=== PATIENT | male | born 1990 | race African-American/Black ===

== ENCOUNTER 2016-05-03 08:50 | Inpatient (IN) | payer OTHER ==
[~2016-05-03] VITALS: Ht 180.3 cm; Wt 81.6 kg
[~2016-05-03 08:50] MED LIST: ACETAMINOPHEN-1 EAC1 ORAL; ALBUTEROL SULF8.5 GM INH; AMOXICILLIN500 MG ORAL; BACTRIM DS TAB1 EAC1 ORAL; BACTRIM-DS1 EA ORAL; BENADRYL25 M1 PO; CEPHALEXIN500 MG ORAL; CEPHALEXIN500 MG PO; COLACE100 MG ORAL; COLACE100 MG PO; FLAGYL500 MG ORAL; FLEET ENEMA133 ML RECTAL; GABAPENTIN300 MG PO; KEFLEX500 MG ORAL; LACTULOSE20 GM/301 ORAL; LIORESAL10 MG PO; LIORESAL20 MG PO; MACROBID 100 M100 MG ORAL; MACROBID100 MG ORAL; MILK OF MA400 MG/51 ORAL; MOTRIN100 MG/51 PO; NITROFURANTOIN100 M2 ORAL; NORCO 10-325 T1 EACH ORAL; NORCO 5-325 TA1 EACH ORAL; NORCO 5-325 TA1 EACH PO; NORCO 5/3251 TAB ORAL; NORCO 7.5/3251 EA ORAL; ONDANSETRON ODT4 MG ORAL; ONDANSETRON ODT8 MG PO; PERCOCET 5-3251 EACH ORAL; PROMETHAZINE-C118 M1 ORAL; RANITIDINE HCL150 MG ORAL; ROBAXIN-750750 MG PO; ROBAXIN500 MG PO; SOMA350 MG PO; TIZANIDINE HCL4 MG PO; TRAMADOL HCL50 MG ORAL; VALIUM5 MG ORAL; ZOFRAN ODT4 MG ORAL; ZOFRAN4 MG ORAL; ZOFRAN4 MG/5 ML ORAL; [UNRECOGNIZED DRUG - OTHER]
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
[2016-05-03 10:10] VITALS: BP 111/70
[2016-05-03] MEDS ORDERED: Vancomycin 1.5gm/D5W 300ml 325 ML IVPB ONE (10:30)
[2016-05-03] MEDS ORDERED: Acetaminophen 650 MG SUPP RECTAL ONE (10:30)
--- NOTE | 2016-05-03 10:43 | Diagnostic Imaging Report ---
Indication: Chest Pain Comparison: 08/15/15 A single view chest radiograph was obtained. Findings: The exam is limited by rotation but no obvious infiltrate identified. There is borderline cardiomegaly present. Bones are unremarkable. Impression: No acute disease
[2016-05-03 11:09] LABS: BASOPHILS % (AUTO) 0.4 % (0.0-2.0); LYMPHOCYTES % (AUTO) 7.6 % (20.0-45.0); MEAN CORPUSCULAR HEMOGLOBIN 29.8 PG (27.0-31.0); MEAN CORPUSCULAR HGB CONC 32.6 G/DL (32.0-36.0); MEAN CORPUSCULAR VOLUME 92 FL (80-99); MEAN PLATELET VOLUME 8.6 FL (6.5-10.1); NEUTROPHILS % (AUTO) 79.1 % (45.0-75.0); PLATELET COUNT 199 K/UL (150-450); RED BLOOD COUNT 5.28 M/UL (4.70-6.10); RED CELL DISTRIBUTION WIDTH 11.7 % (11.6-14.8); WHITE BLOOD COUNT 14.3 K/UL (4.8-10.8)
[2016-05-03 11:21] LABS: ALANINE AMINOTRANSFERASE 13 U/L (3-41); ALBUMIN/GLOBULIN RATIO 0.8 (1.0-2.7); ANION GAP 22 (5-15); ASPARTATE AMINO TRANSFERASE 23 U/L (5-40); CALCIUM 9.7 mg/dL (8.6-10.2); CARBON DIOXIDE 23 mEQ/L (20-30); CHLORIDE 92 mEQ/L (98-107); CREATININE 0.9 mg/dL (0.7-1.2); GLOMERULAR FILTRATION RATE > 60 mL/min (>60); HEMOLYSIS 11; LIPASE 59 U/L (< 60); POTASSIUM 3.8 mEQ/L (3.4-4.9); SODIUM 137 mEQ/L (135-145); TOTAL PROTEIN 8.7 g/dL (6.6-8.7); TROPONIN I < 0.30 ng/mL (<=0.30)
[2016-05-03 11:30] LABS: CKMB 1.9 ng/mL (< 6.7)
[2016-05-03] MEDS ORDERED: DuoNeb 0.5-3(2.5)mg/3ml neb HHN PRN (11:30)
[2016-05-03] MEDS ORDERED: Miralax 17gm pkt ORAL PRN (11:30)
[2016-05-03] MEDS ORDERED: Nitroglycerin Subl 0.4mg tab (Bottle Of 25) SL PRN (11:30)
[2016-05-03 11:49] LABS: APPEARANCE,URINE CLEAR; KETONES,URINE 1+ (NEGATIVE); LEUKOCYTE ESTERASE ,URINE 2+ (NEGATIVE); NITRITE,URINE NEGATIVE (NEGATIVE); PH,URINE 6 (4.5-8.0); PROTEIN,URINE 2+ (NEGATIVE); UROBILINOGEN,URINE NORMAL MG/DL (0.0-1.0)
[2016-05-03 12:00] LABS: BACTERIA,URINE OCCASIONAL /HPF; SQUAMOUS EPITHELIAL CELL,UR OCCASIONAL /LPF (NONE/OCC)
[2016-05-03 12:06] VITALS: BP 109/66
[2016-05-03] MEDS ORDERED: Zosyn 4.5gm inj ONE (12:45)
[2016-05-03 13:05] VITALS: BP 111/76
[2016-05-03 13:30] VITALS: BP 120/62
[2016-05-03] MEDS ORDERED: Piperacillin/Tazobactam 4.5 GM in NS 110 ML IV SCH (14:00)
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
[2016-05-03] MEDS ORDERED: Heparin 2000 units/Ns 1000ml INJ ONE (15:30)
[2016-05-03] MEDS ORDERED: Lidocaine 1% Plain 30 ml INJ ONE (15:30)
[2016-05-03] MEDS ORDERED: Sodium Bicarbonate 8.4% 50ml Inj IV ONE (15:30)
[2016-05-03 16:00] VITALS: BP 97/41
--- NOTE | 2016-05-03 16:15 | Diagnostic Imaging Report ---
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 The right upper extremity was prepped with alcohol. All elements of maximal sterile barrier technique were followed including usage of a cap, mask, sterile gown, sterile gloves, hand hygiene and a large sterile sheet. Sonographic evaluation of the upper extremity was performed demonstrating a patent and compressible basilic vein. Access was obtained under real-time ultrasound guidance and digital image was saved and archived. An .018 wire was introduced. Needle exchanged for a 5 Estonian peel-away sheath. Measurements were obtained. A 5 [place]ian dual-lumen Power PICC line catheter was cut to 40 cm and introduced over the wire. Peel-away sheath and wire were removed.Catheter was secured to the skin using 2-0 Prolene suture. Both ports aspirate and flush easily. Fluoroscopic Images show distal tip in the superior vena cava. Total fluoroscopic time 1.3 minutes Impression: Successful placement of an upper extremity PICC line catheter
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
--- NOTE | 2016-05-03 16:43 | Diagnostic Imaging Report ---
Indication: Abdominal pain Technique: Continuous helical transaxial imaging of the abdomen and pelvis was obtained from the lung bases to the pubic symphysis during intravenous contrast administration. Coronal 2-D reformats were also obtained. Study obtained in a Siemens sensation [address] Total Dose length Product (DLP): [address] Dose Index Volume (CTDIvol): 20 mGy Comparison: 07/06/15 Findings: There is a stone in the upper pole calyx of the left kidney measuring approximately 1.6 cm, unchanged from the previous occasion. Other smaller nonobstructive stones demonstrated in the right kidney. There is mild left hydronephrosis secondary to a proximal left ureteral stone measuring 7 mm. This may be ureteral stone was not seen on the previous occasion. There is moderate fecal impaction without distention of the rectum and sigmoid colon due to stool. Motion artifacts are present limiting evaluation. No obvious abnormalities of the liver, gallbladder is, spleen or pancreas identified. There is no ascites. Coffey catheter is present. Impression: 7 mm left mid ureteral stone with mild hydronephrosis. Nonobstructive 1.6 cm stone in the left kidney upper pole calyx. Small nonobstructive stones in the right kidney. Fecal impaction Coffey catheter Limitation due to the motion The CT scanner at [facility] is accredited by the [employer] and the scans are performed using protocols designed to limit radiation exposure to as low as reasonably achievable to attain images of sufficient resolution adequate for diagnostic evaluation.
[2016-05-03] MEDS: Methocarbamol 750mg tab ORAL SCH ×2 (16:49→21:30)
[2016-05-03] MEDS: Morphine Sulfate 2mg/ml Inj IVP PRN ×2 (16:50→21:30)
[2016-05-03] MEDS: Cefepime HCl 2 GM in D5W 110 ML IV SCH (16:53)
[2016-05-03] MEDS: Vancomycin 1 GM in D5W 275 ML IVPB SCH (17:11)
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
[2016-05-03 20:46] VITALS: BP 105/59
[2016-05-03] MEDS: Heparin 5000 units/ml inj SUBQ SCH (21:32)
[2016-05-04] VITALS (8 sets, daily range): BP systolic 3–142; BP diastolic 49–71
[2016-05-04] MEDS: Morphine Sulfate 2mg/ml Inj IVP PRN ×3 (01:36→12:25)
[2016-05-04] MEDS: Vancomycin 1 GM in D5W 275 ML IVPB SCH ×3 (01:37→17:37)
[2016-05-04 04:04] LABS: APPEARANCE,URINE SLIGHTLY CLOUDY; KETONES,URINE 1+ (NEGATIVE); LEUKOCYTE ESTERASE ,URINE 2+ (NEGATIVE); NITRITE,URINE NEGATIVE (NEGATIVE); PH,URINE 6 (4.5-8.0); PROTEIN,URINE 3+ (NEGATIVE); UROBILINOGEN,URINE NORMAL MG/DL (0.0-1.0)
[2016-05-04 04:06] LABS: BASOPHILS % (AUTO) 0.4 % (0.0-2.0); LYMPHOCYTES % (AUTO) 13.6 % (20.0-45.0); MEAN CORPUSCULAR HEMOGLOBIN 30.2 PG (27.0-31.0); MEAN CORPUSCULAR HGB CONC 32.9 G/DL (32.0-36.0); MEAN CORPUSCULAR VOLUME 92 FL (80-99); MEAN PLATELET VOLUME 9.3 FL (6.5-10.1); MONOCYTES % (AUTO) 14.2 % (1.0-10.0); NEUTROPHILS % (AUTO) 71.8 % (45.0-75.0); PLATELET COUNT 170 K/UL (150-450); RED BLOOD COUNT 4.32 M/UL (4.70-6.10); RED CELL DISTRIBUTION WIDTH 12.1 % (11.6-14.8); WHITE BLOOD COUNT 14.2 K/UL (4.8-10.8)
[2016-05-04 04:19] LABS: ALANINE AMINOTRANSFERASE 13 U/L (3-41); ALBUMIN/GLOBULIN RATIO 0.9 (1.0-2.7); ANION GAP 16 (5-15); ASPARTATE AMINO TRANSFERASE 22 U/L (5-40); CARBON DIOXIDE 27 mEQ/L (20-30); CHLORIDE 90 mEQ/L (98-107); CREATININE 0.8 mg/dL (0.7-1.2); GLOMERULAR FILTRATION RATE > 60 mL/min (>60); HEMOLYSIS 3; POTASSIUM 4.3 mEQ/L (3.4-4.9); SODIUM 133 mEQ/L (135-145); TOTAL PROTEIN 7.5 g/dL (6.6-8.7)
[2016-05-04 04:27] LABS: BACTERIA,URINE FEW /HPF; RBC,URINE TNTC /HPF (0 - 0); WBC,URINE 20-30 /HPF (0 - 0)
[2016-05-04] MEDS: Cefepime HCl 2 GM in D5W 110 ML IV SCH ×2 (08:22→20:59)
[2016-05-04] MEDS: Methocarbamol 750mg tab ORAL SCH ×3 (08:23→17:34)
[2016-05-04] MEDS: Heparin 5000 units/ml inj SUBQ SCH ×2 (08:23→21:00)
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
[2016-05-04] MEDS ORDERED: Nitroglycerin Subl 0.4mg tab (Bottle Of 25) SL PRN (14:45)
--- NOTE | 2016-05-04 16:56 | History & Physical ---
History and Physical History & Physicial Dictated for Int Med-Dr Barcenas no. [id number] LOBO TOLLIVER May 04, 2016 16:56
[2016-05-04] MEDS ORDERED: DuoNeb 0.5-3(2.5)mg/3ml neb HHN PRN (17:00)
[2016-05-05] MEDS: Morphine Sulfate 2mg/ml Inj IVP PRN ×5 (00:07→18:30)
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
[2016-05-05] MEDS: Vancomycin 1 GM in D5W 275 ML IVPB SCH ×3 (02:29→17:08)
[2016-05-05 04:00] VITALS: BP 159/92
[2016-05-05 07:06] LABS: BASOPHILS % (AUTO) 0.6 % (0.0-2.0); EOSINOPHILS % (AUTO) 1.1 % (0.0-3.0); LYMPHOCYTES % (AUTO) 15.6 % (20.0-45.0); MEAN CORPUSCULAR HEMOGLOBIN 30.8 PG (27.0-31.0); MEAN CORPUSCULAR HGB CONC 33.4 G/DL (32.0-36.0); MEAN CORPUSCULAR VOLUME 92 FL (80-99); MEAN PLATELET VOLUME 8.6 FL (6.5-10.1); MONOCYTES % (AUTO) 15.5 % (1.0-10.0); NEUTROPHILS % (AUTO) 67.2 % (45.0-75.0); PLATELET COUNT 145 K/UL (150-450); RED BLOOD COUNT 3.95 M/UL (4.70-6.10); RED CELL DISTRIBUTION WIDTH 11.6 % (11.6-14.8); WHITE BLOOD COUNT 9.5 K/UL (4.8-10.8)
[2016-05-05 07:18] LABS: ALANINE AMINOTRANSFERASE 15 U/L (3-41); ALBUMIN/GLOBULIN RATIO 0.8 (1.0-2.7); ANION GAP 15 (5-15); ASPARTATE AMINO TRANSFERASE 20 U/L (5-40); CALCIUM 9.3 mg/dL (8.6-10.2); CARBON DIOXIDE 25 mEQ/L (20-30); CHLORIDE 97 mEQ/L (98-107); CREATININE 0.6 mg/dL (0.7-1.2); GLOMERULAR FILTRATION RATE > 60 mL/min (>60); HEMOLYSIS 1; MAGNESIUM 1.7 mg/dL (1.7-2.5); PHOSPHORUS 2.7 mg/dL (2.5-4.8); POTASSIUM 4.1 mEQ/L (3.4-4.9); SODIUM 137 mEQ/L (135-145); TOTAL PROTEIN 7.4 g/dL (6.6-8.7)
[2016-05-05 08:30] VITALS: BP 134/72
[2016-05-05] MEDS: Heparin 5000 units/ml inj SUBQ SCH ×2 (09:00→20:55)
[2016-05-05] MEDS: Methocarbamol 750mg tab ORAL SCH ×3 (09:22→17:06)
[2016-05-05] MEDS: Cefepime HCl 2 GM in D5W 110 ML IV SCH ×2 (09:24→20:54)
[2016-05-05] MEDS ORDERED: Miralax 17gm pkt ORAL PRN (11:30)
[2016-05-05 11:50] VITALS: BP 135/80
--- NOTE | 2016-05-05 13:03 | Internal Med Progress Note ---
Subjective Date of Service: May 05, 2016 Physician Name Lobo Tolliver Attending Physician Igor Barcenas MD Current Medications Medications (Trade) Dose Ordered Sig/Jahaira Route PRN Reason Start Time Stop Time Status Last Admin Dose Admin Acetaminophen (Tylenol) 650 mg Q4H PRN ORAL fever 05/04/16 15:30 06/03/16 15:29 05/04/16 15:47 Albuterol/ Ipratropium (DuoNeb 0.5-3(2.5)mg/3ml) 3 ml EVERY 4 HOURS PRN HHN Shortness of Breath 05/04/16 17:00 05/09/16 16:59 Cefepime HCl 2 gm/ Dextrose 110 ml @ 220 mls/hr Q12HR IV 05/04/16 21:00 05/10/16 20:59 05/05/16 09:24 Gabapentin (Neurontin) 400 mg Q8HR ORAL 05/04/16 22:00 06/03/16 21:59 Gabapentin (Neurontin) 600 mg Q8HR ORAL 05/04/16 22:00 06/03/16 21:59 Heparin Sodium (Porcine) (Heparin 5000 units/ml) 5,000 units EVERY 12 HOURS SUBQ 05/04/16 21:00 06/03/16 20:59 Methocarbamol (Robaxin) 750 mg TID ORAL 05/04/16 18:00 06/03/16 17:59 05/05/16 09:22 Morphine Sulfate (Morphine Sulfate) 4 mg Q4H PRN IVP Severe Pain (Pain Scale 7-10) 05/05/16 11:00 05/12/16 10:59 05/05/16 12:52 Nitroglycerin (Ntg) 0.4 mg Q5M PRN SL Prn Chest Pain 05/04/16 14:45 06/03/16 14:44 Ondansetron HCl (Zofran) 4 mg Q6H PRN IVP Nausea & Vomiting 05/04/16 17:30 06/03/16 17:29 05/05/16 12:52 Polyethylene Glycol (Miralax) 17 gm DAILYPRN PRN ORAL Constipation 05/05/16 11:30 06/04/16 11:29 Sodium Chloride 1,000 ml @ 100 mls/hr Q10H IV 05/04/16 16:00 06/03/16 15:59 05/05/16 06:39 Temazepam (Restoril) 15 mg HSPRN PRN ORAL Insomnia 05/05/16 11:30 05/12/16 11:29 Vancomycin HCl (Vanco rx to dose) 1 ea DAILY PRN MISC PER RX PROTOCOL 05/05/16 09:00 06/04/16 08:59 Vancomycin HCl/ Dextrose (Vancomycin/D5W) 275 ml @ 183.3 mls/ hr Q8HR@0200,1000,1800 IVPB 05/04/16 18:00 05/08/16 17:59 05/05/16 10:34 Allergies: Coded Allergies: IBUPROFEN (Verified Allergy, Mild, Hives, 09/16/12) LEVOFLOXACIN (Verified Allergy, Unknown, 12/15/10) NITROFURANTOIN (Unverified Allergy, Unknown, 05/03/16) ROS Limited/Unobtainable: No Constitutional: Reports: chills, fever HEENT: Reports: no symptoms Cardiovascular: Reports: no symptoms Respiratory: Reports: no symptoms Gastrointestinal/Abdominal: Reports: nausea, vomiting Genitourinary: Reports: no symptoms Neurologic/Psychiatric: Reports: no symptoms Subjective 25 YO M with paraplegia admitted with fever, now sepsis. Cover for Int [facility]-Dr Barcenas. Objective Last Vital Signs Date Time Temp Pulse Resp B/P Pulse Ox O2 Delivery O2 Flow Rate FiO2 05/05/16 11:50 98.2 76 20 135/80 95 Room Air 05/05/16 08:15 21 05/03/16 13:05 3.0 General Appearance: WD/WN, no apparent distress, alert EENT: PERRL/EOMI, normal ENT inspection Neck: non-tender, normal alignment, supple Cardiovascular: normal peripheral pulses, normal rate, regular rhythm, no gallop/murmur, no JVD Respiratory/Chest: chest wall non-tender, lungs clear, normal breath sounds, no respiratory distress, no accessory muscle use Abdomen: normal bowel sounds, non tender, soft, no organomegaly, no mass Extremities: other - paraplegia Neurologic: lens dotter II-XII grossly normal Skin: normal pigmentation, warm/dry Laboratory Tests Test 05/05/16 04:45 White Blood Count 9.5 K/UL (4.8-10.8) Red Blood Count 3.95 M/UL (4.70-6.10) L Hemoglobin 12.2 G/DL (14.2-18.0) L Hematocrit 36.4 % (42.0-52.0) L Mean Corpuscular Volume 92 FL (80-99) Mean Corpuscular Hemoglobin 30.8 PG (27.0-31.0) Mean Corpuscular Hemoglobin Concent 33.4 G/DL (32.0-36.0) Red Cell Distribution Width 11.6 % (11.6-14.8) Platelet Count 145 K/UL (150-450) L Mean Platelet Volume 8.6 FL (6.5-10.1) Neutrophils (%) (Auto) 67.2 % (45.0-75.0) Lymphocytes (%) (Auto) 15.6 % (20.0-45.0) L Monocytes (%) (Auto) 15.5 % (1.0-10.0) H Eosinophils (%) (Auto) 1.1 % (0.0-3.0) Basophils (%) (Auto) 0.6 % (0.0-2.0) Sodium Level 137 mEQ/L (135-145) Potassium Level 4.1 mEQ/L (3.4-4.9) Chloride Level 97 mEQ/L (98-107) L Carbon Dioxide Level 25 mEQ/L (20-30) Anion Gap 15 (5-15) Blood Urea Nitrogen 11 mg/dL (7-23) Creatinine 0.6 mg/dL (0.7-1.2) L Estimat Glomerular Filtration Rate > 60 mL/min (>60) Glucose Level 84 mg/dL (74-106) Calcium Level 9.3 mg/dL (8.6-10.2) Phosphorus Level 2.7 mg/dL (2.5-4.8) Magnesium Level 1.7 mg/dL (1.7-2.5) Total Bilirubin 0.7 mg/dL (0.0-1.2) Aspartate Amino Transf (AST/SGOT) 20 U/L (5-40) Alanine Aminotransferase (ALT/SGPT) 15 U/L (3-41) Alkaline Phosphatase 54 U/L (40-129) Total Protein 7.4 g/dL (6.6-8.7) Albumin 3.3 g/dL (3.5-5.2) L Globulin 4.1 g/dL Albumin/Globulin Ratio 0.8 (1.0-2.7) L Microbiology Date/Time Source Procedure Growth Status 05/03/16 10:45 Blood Blood Culture - Preliminary NO GROWTH AFTER 24 HOURS Resulted 05/03/16 10:35 Blood Blood Culture - Preliminary NO GROWTH AFTER 24 HOURS Resulted 05/04/16 03:50 Indwelling Cath Urine Culture - Preliminary Resulted 05/03/16 11:33 Rectum VRE Culture - Final NO VANCOMYCIN RESISTANT ENTEROCOCCUS ... Complete Intake and Output 05/04/16 05/05/16 18:59 06:59 Intake Total 1518.0 ml 1700 ml Output Total 500 ml 1900 ml Balance 1018.0 ml -200 ml Intake Oral 350 ml 240 ml IV Total 1168.0 ml 1460 ml Output Urine Total 500 ml 1900 ml # Bowel Movements 2 1 Assessment/Plan Problem List: (1) UTI (lower urinary tract infection) Assessment & Plan: See ID note. Cont vancomycin and cefepime. Await urine culture result. (2) Fever (3) Quadriplegia (4) Nausea & vomiting Assessment & Plan: Cont zofran (5) Abdominal pain (6) Opioid dependence Assessment & Plan: Continue IV Morphine. Status: not improved LOBO TOLLIVER May 05, 2016 13:03
[2016-05-05] MEDS: DiphenhydrAMINE 50mg/ml Inj IVP PRN (14:02)
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
--- NOTE | 2016-05-05 15:17 | Pulmonology Progress Note ---
Assessment/Plan Problems: (1) Sepsis (2) UTI (lower urinary tract infection) (3) Nausea & vomiting (4) Constipation Assessment/Plan on empiric abx treatment afebrile, continue antibiotics check cultures tolerating feeding pain management Subjective ROS Limited/Unobtainable: No Interval Events: was asking for higher dose of narcotics. Allergies: Coded Allergies: IBUPROFEN (Verified Allergy, Mild, Hives, 09/16/12) LEVOFLOXACIN (Verified Allergy, Unknown, 12/15/10) NITROFURANTOIN (Unverified Allergy, Unknown, 05/03/16) Objective Last 24 Hour Vital Signs Date Time Temp Pulse Resp B/P Pulse Ox O2 Delivery O2 Flow Rate FiO2 05/05/16 11:50 98.2 76 20 135/80 95 Room Air 05/05/16 08:30 98.1 84 21 134/72 95 Room Air 05/05/16 08:15 105 18 Room Air 21 05/05/16 04:00 98.7 96 20 159/92 99 Room Air 05/04/16 23:44 97.9 91 20 123/65 96 Room Air 05/04/16 19:00 98.4 90 20 127/71 97 Room Air 05/04/16 17:30 103/50 05/04/16 16:46 100.9 05/04/16 16:00 100.9 100 20 80/49 97 Room Air Intake and Output 05/04/16 05/05/16 19:00 07:00 Intake Total 1518.0 ml 1800 ml Output Total 500 ml 1900 ml Balance 1018.0 ml -100 ml Intake Oral 350 ml 240 ml IV Total 1168.0 ml 1560 ml Output Urine Total 500 ml 1900 ml # Bowel Movements 2 1 Objective Lines, tubes and drains: peripheral, HEENT: normocephalic, atraumatic Neck: non-tender, normal alignment Respiratory/Chest: chest wall non-tender, lungs clear Cardiovascular/Chest: normal peripheral pulses, normal rate Abdomen: normal bowel sounds, non tender Genitourinary/Rectal: normal genital exam, normal rectal exam Extremities: normal range of motion, non-tender Microbiology Date/Time Source Procedure Growth Status 05/03/16 10:45 Blood Blood Culture - Preliminary NO GROWTH AFTER 24 HOURS Resulted 05/03/16 10:35 Blood Blood Culture - Preliminary NO GROWTH AFTER 24 HOURS Resulted 05/04/16 03:50 Indwelling Cath Urine Culture - Preliminary Resulted 05/03/16 11:33 Rectum VRE Culture - Final NO VANCOMYCIN RESISTANT ENTEROCOCCUS ... Complete Laboratory Tests 05/05/16 04:45: White Blood Count 9.5, Red Blood Count 3.95L, Hemoglobin 12.2L, Hematocrit 36.4L , Mean Corpuscular Volume 92, Mean Corpuscular Hemoglobin 30.8, Mean Corpuscular Hemoglobin Concent 33.4, Red Cell Distribution Width 11.6, Platelet Count 145L, Mean Platelet Volume 8.6, Neutrophils (%) (Auto) 67.2, Lymphocytes ( %) (Auto) 15.6L, Monocytes (%) (Auto) 15.5H, Eosinophils (%) (Auto) 1.1, Basophils (%) (Auto) 0.6, Sodium Level 137, Potassium Level 4.1, Chloride Level 97L, Carbon Dioxide Level 25, Anion Gap 15, Blood Urea Nitrogen 11, Creatinine 0.6L, Estimat Glomerular Filtration Rate > 60, Glucose Level 84, Calcium Level 9.3, Phosphorus Level 2.7, Magnesium Level 1.7, Total Bilirubin 0.7, Aspartate Amino Transf (AST/SGOT) 20, Alanine Aminotransferase (ALT/SGPT) 15, Alkaline Phosphatase 54, Total Protein 7.4, Albumin 3.3L, Globulin 4.1, Albumin/Globulin Ratio 0.8L Current Medications Medications (Trade) Dose Ordered Sig/Jahaira Route PRN Reason Start Time Stop Time Status Last Admin Dose Admin Acetaminophen (Tylenol) 650 mg Q4H PRN ORAL fever 05/04/16 15:30 06/03/16 15:29 05/04/16 15:47 Albuterol/ Ipratropium (DuoNeb 0.5-3(2.5)mg/3ml) 3 ml EVERY 4 HOURS PRN HHN Shortness of Breath 05/04/16 17:00 05/09/16 16:59 Cefepime HCl 2 gm/ Dextrose 110 ml @ 220 mls/hr Q12HR IV 05/04/16 21:00 05/10/16 20:59 05/05/16 09:24 Diphenhydramine HCl (Benadryl) 50 mg Q4H PRN IVP Itching 05/05/16 13:45 06/04/16 13:44 05/05/16 14:02 Gabapentin (Neurontin) 400 mg Q8HR ORAL 05/04/16 22:00 06/03/16 21:59 05/05/16 13:36 Gabapentin (Neurontin) 600 mg Q8HR ORAL 05/04/16 22:00 06/03/16 21:59 05/05/16 13:37 Heparin Sodium (Porcine) (Heparin 5000 units/ml) 5,000 units EVERY 12 HOURS SUBQ 05/04/16 21:00 06/03/16 20:59 Methocarbamol (Robaxin) 750 mg TID ORAL 05/04/16 18:00 06/03/16 17:59 05/05/16 13:37 Morphine Sulfate (Morphine Sulfate) 4 mg Q4H PRN IVP Severe Pain (Pain Scale 7-10) 05/05/16 11:00 05/12/16 10:59 05/05/16 12:52 Nitroglycerin (Ntg) 0.4 mg Q5M PRN SL Prn Chest Pain 05/04/16 14:45 06/03/16 14:44 Ondansetron HCl (Zofran) 4 mg Q6H PRN IVP Nausea & Vomiting 05/04/16 17:30 06/03/16 17:29 05/05/16 12:52 Polyethylene Glycol (Miralax) 17 gm DAILYPRN PRN ORAL Constipation 05/05/16 11:30 06/04/16 11:29 Sodium Chloride 1,000 ml @ 100 mls/hr Q10H IV 05/04/16 16:00 06/03/16 15:59 05/05/16 06:39 Temazepam (Restoril) 15 mg HSPRN PRN ORAL Insomnia 05/05/16 11:30 05/12/16 11:29 Vancomycin HCl (Vanco rx to dose) 1 ea DAILY PRN MISC PER RX PROTOCOL 05/05/16 09:00 06/04/16 08:59 Vancomycin HCl/ Dextrose (Vancomycin/D5W) 275 ml @ 183.3 mls/ hr Q8HR@0200,1000,1800 IVPB 05/04/16 18:00 05/08/16 17:59 05/05/16 10:34 ROSS SAMAYOA May 05, 2016 15:17
[2016-05-05 15:55] VITALS: BP 121/76
[2016-05-05 19:00] VITALS: BP 114/72
[2016-05-06] VITALS: BP 132/83
[2016-05-06] MEDS: DiphenhydrAMINE 50mg/ml Inj IVP PRN ×5 (00:41→21:25)
[2016-05-06] MEDS: Morphine Sulfate 2mg/ml Inj IVP PRN ×5 (00:44→21:28)
[2016-05-06] MEDS: Vancomycin 1 GM in D5W 275 ML IVPB SCH ×2 (02:00→09:50)
[2016-05-06 04:00] VITALS: BP 108/81
[2016-05-06 08:14] VITALS: BP 138/62
[2016-05-06] MEDS: Heparin 5000 units/ml inj SUBQ SCH ×2 (08:29→21:00)
[2016-05-06] MEDS: Cefepime HCl 2 GM in D5W 110 ML IV SCH (08:29)
[2016-05-06] MEDS: Methocarbamol 750mg tab ORAL SCH ×3 (08:30→17:49)
[2016-05-06 12:15] VITALS: BP 104/70
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
--- NOTE | 2016-05-06 15:21 | Cardiology Report ---
APPROVED REPORT EKG Measurement Heart [id number] OR [id number] Sinus tachycardia Possible Left atrial enlargement Borderline ECG
--- NOTE | 2016-05-06 15:46 | Pulmonology Progress Note ---
Assessment/Plan Problems: (1) Sepsis (2) UTI (lower urinary tract infection) (3) Nausea & vomiting (4) Constipation Assessment/Plan on empiric abx treatment bactrrim started today afebrile, continue antibiotics check cultures tolerating feeding pain management Subjective ROS Limited/Unobtainable: No Constitutional: Reports: no symptoms HEENT: Repors: no symptoms Respiratory: Reports: no symptoms Allergies: Coded Allergies: IBUPROFEN (Verified Allergy, Mild, Hives, 09/16/12) LEVOFLOXACIN (Verified Allergy, Unknown, 12/15/10) NITROFURANTOIN (Unverified Allergy, Unknown, 05/03/16) Objective Last 24 Hour Vital Signs Date Time Temp Pulse Resp B/P Pulse Ox O2 Delivery O2 Flow Rate FiO2 05/06/16 12:15 98.1 93 20 104/70 97 Room Air 05/06/16 08:14 97.5 116 21 138/62 97 Room Air 05/06/16 07:36 88 18 Room Air 21 05/06/16 04:00 98.8 95 18 108/81 95 Room Air 05/06/16 00:00 99.7 102 18 132/83 95 Room Air 05/05/16 21:54 98.1 05/05/16 21:54 98.1 05/05/16 19:20 95 18 Room Air 21 05/05/16 19:00 98.1 05/05/16 19:00 99.0 97 20 114/72 95 Room Air 05/05/16 15:55 98.1 77 20 121/76 98 Room Air Intake and Output 05/05/16 05/06/16 19:00 07:00 Intake Total 1480.0 ml 1435.0 ml Output Total 1000 ml 2700 ml Balance 480.0 ml -1265.0 ml Intake Oral 120 ml 360 ml IV Total 1360.0 ml 1075.0 ml Output Urine Total 1000 ml 2700 ml Objective Lines, tubes and drains: peripheral, HEENT: normocephalic, atraumatic Neck: non-tender, normal alignment Respiratory/Chest: chest wall non-tender, lungs clear Cardiovascular/Chest: normal peripheral pulses, normal rate Abdomen: normal bowel sounds, non tender Genitourinary/Rectal: normal genital exam, normal rectal exam Extremities: normal range of motion, non-tender General Appearance: WD/WN HEENT: normocephalic, atraumatic Respiratory/Chest: chest wall non-tender, lungs clear Cardiovascular: normal peripheral pulses, normal rate Abdomen: normal bowel sounds, soft, non tender 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 Microbiology Date/Time Source Procedure Growth Status 05/04/16 03:50 Indwelling Cath Urine Culture - Final Mixed Gram Positive Organism Complete Current Medications Medications (Trade) Dose Ordered Sig/Jahaira Route PRN Reason Start Time Stop Time Status Last Admin Dose Admin Acetaminophen (Tylenol) 650 mg Q4H PRN ORAL fever 05/04/16 15:30 06/03/16 15:29 05/04/16 15:47 Albuterol/ Ipratropium (DuoNeb 0.5-3(2.5)mg/3ml) 3 ml EVERY 4 HOURS PRN HHN Shortness of Breath 05/04/16 17:00 05/09/16 16:59 Diphenhydramine HCl (Benadryl) 50 mg Q4H PRN IVP Itching 05/05/16 13:45 06/04/16 13:44 05/06/16 14:35 Gabapentin (Neurontin) 400 mg Q8HR ORAL 05/04/16 22:00 06/03/16 21:59 05/06/16 13:36 Gabapentin (Neurontin) 600 mg Q8HR ORAL 05/04/16 22:00 06/03/16 21:59 05/06/16 13:36 Heparin Sodium (Porcine) (Heparin 5000 units/ml) 5,000 units EVERY 12 HOURS SUBQ 05/04/16 21:00 06/03/16 20:59 Methocarbamol (Robaxin) 750 mg TID ORAL 05/04/16 18:00 06/03/16 17:59 05/06/16 13:36 Morphine Sulfate (Morphine Sulfate) 4 mg Q4H PRN IVP Severe Pain (Pain Scale 7-10) 05/05/16 11:00 05/12/16 10:59 05/06/16 14:36 Nitroglycerin (Ntg) 0.4 mg Q5M PRN SL Prn Chest Pain 05/04/16 14:45 06/03/16 14:44 Ondansetron HCl (Zofran) 4 mg Q4HR PRN IVP Nausea & Vomiting 05/05/16 17:00 06/04/16 16:59 05/06/16 14:44 Polyethylene Glycol (Miralax) 17 gm DAILYPRN PRN ORAL Constipation 05/05/16 11:30 06/04/16 11:29 Sodium Chloride (Sodium Chloride 1000ml bag) 1,000 ml @ 100 mls/hr Q10H IV 05/04/16 16:00 06/03/16 15:59 05/06/16 08:28 Temazepam (Restoril) 15 mg HSPRN PRN ORAL Insomnia 05/05/16 11:30 05/12/16 11:29 Trimethoprim/ Sulfamethoxazole (Bactrim-DS) 1 ea TWICE A DAY ORAL 05/06/16 18:00 05/13/16 17:59 ROSS SAMAYOA May 06, 2016 15:46
[2016-05-06 16:00] VITALS: BP 105/72
--- NOTE | 2016-05-06 17:24 | Internal Med Progress Note ---
Subjective Date of Service: May 06, 2016 Physician Name Geraldo Tolliver Attending Physician Igor Barcenas MD Current Medications Medications (Trade) Dose Ordered Sig/Jahaira Route PRN Reason Start Time Stop Time Status Last Admin Dose Admin Acetaminophen (Tylenol) 650 mg Q4H PRN ORAL fever 05/04/16 15:30 06/03/16 15:29 05/04/16 15:47 Albuterol/ Ipratropium (DuoNeb 0.5-3(2.5)mg/3ml) 3 ml EVERY 4 HOURS PRN HHN Shortness of Breath 05/04/16 17:00 05/09/16 16:59 Diphenhydramine HCl (Benadryl) 50 mg Q4H PRN IVP Itching 05/05/16 13:45 06/04/16 13:44 05/06/16 14:35 Gabapentin (Neurontin) 400 mg Q8HR ORAL 05/04/16 22:00 06/03/16 21:59 05/06/16 13:36 Gabapentin (Neurontin) 600 mg Q8HR ORAL 05/04/16 22:00 06/03/16 21:59 05/06/16 13:36 Heparin Sodium (Porcine) (Heparin 5000 units/ml) 5,000 units EVERY 12 HOURS SUBQ 05/04/16 21:00 06/03/16 20:59 Methocarbamol (Robaxin) 750 mg TID ORAL 05/04/16 18:00 06/03/16 17:59 05/06/16 13:36 Morphine Sulfate (Morphine Sulfate) 4 mg Q4H PRN IVP Severe Pain (Pain Scale 7-10) 05/05/16 11:00 05/12/16 10:59 05/06/16 14:36 Nitroglycerin (Ntg) 0.4 mg Q5M PRN SL Prn Chest Pain 05/04/16 14:45 06/03/16 14:44 Ondansetron HCl (Zofran) 4 mg Q4HR PRN IVP Nausea & Vomiting 05/05/16 17:00 06/04/16 16:59 05/06/16 14:44 Polyethylene Glycol (Miralax) 17 gm DAILYPRN PRN ORAL Constipation 05/05/16 11:30 06/04/16 11:29 Sodium Chloride (Sodium Chloride 1000ml bag) 1,000 ml @ 50 mls/hr Q20H IV 05/06/16 16:00 06/05/16 15:59 05/06/16 16:17 Temazepam (Restoril) 15 mg HSPRN PRN ORAL Insomnia 05/05/16 11:30 05/12/16 11:29 Trimethoprim/ Sulfamethoxazole 1 ea 1 ea TWICE A DAY ORAL 05/06/16 18:00 05/13/16 17:59 Allergies: Coded Allergies: IBUPROFEN (Verified Allergy, Mild, Hives, 09/16/12) LEVOFLOXACIN (Verified Allergy, Unknown, 12/15/10) NITROFURANTOIN (Unverified Allergy, Unknown, 05/03/16) ROS Limited/Unobtainable: No Constitutional: Reports: no symptoms HEENT: Reports: no symptoms Cardiovascular: Reports: no symptoms Respiratory: Reports: no symptoms Gastrointestinal/Abdominal: Reports: no symptoms Genitourinary: Reports: no symptoms Neurologic/Psychiatric: Reports: no symptoms Subjective 25 YO M with paraplegia admitted with fever, now UTI. Cover for [facility] Med-Dr Barcenas. Objective Last Vital Signs Date Time Temp Pulse Resp B/P Pulse Ox O2 Delivery O2 Flow Rate FiO2 05/06/16 16:00 99.3 86 18 105/72 95 Room Air 05/06/16 07:36 21 05/03/16 13:05 3.0 Microbiology Date/Time Source Procedure Growth Status 05/04/16 03:50 Indwelling Cath Urine Culture - Final Mixed Gram Positive Organism Complete Intake and Output 05/05/16 05/06/16 19:00 07:00 Intake Total 1480.0 ml 1435.0 ml Output Total 1000 ml 2700 ml Balance 480.0 ml -1265.0 ml Intake Oral 120 ml 360 ml IV Total 1360.0 ml 1075.0 ml Output Urine Total 1000 ml 2700 ml Objective General Appearance: WD/WN, no apparent distress, alert EENT: PERRL/EOMI, normal ENT inspection Neck: non-tender, normal alignment, supple Cardiovascular: normal peripheral pulses, normal rate, regular rhythm, no gallop/murmur, no JVD Respiratory/Chest: chest wall non-tender, lungs clear, normal breath sounds, no respiratory distress, no accessory muscle use Abdomen: normal bowel sounds, non tender, soft, no organomegaly, no mass Extremities: other - paraplegia 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 D/C vancomycin and cefepime. Start oral bactrim. Urine culture result=mixed gm pos cocci (2) Fever (3) Quadriplegia (4) Nausea & vomiting Assessment & Plan: Cont zofran (5) Abdominal pain (6) Opioid dependence Assessment & Plan: Continue IV Morphine. Status: progressing GERALDO TOLLIVER May 06, 2016 17:24
[2016-05-06] MEDS: Bactrim DS (160mg/800mg) tab ORAL SCH (18:08)
[2016-05-06 19:00] VITALS: BP 127/80
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
[2016-05-07] VITALS: BP 128/84
[2016-05-07] MEDS: DiphenhydrAMINE 50mg/ml Inj IVP PRN ×5 (02:32→22:21)
[2016-05-07] MEDS: Morphine Sulfate 2mg/ml Inj IVP PRN ×5 (02:33→22:22)
[2016-05-07 04:00] VITALS: BP 132/84
[2016-05-07 07:54] VITALS: BP 146/86
[2016-05-07] MEDS: Bactrim DS (160mg/800mg) tab ORAL SCH ×2 (08:27→17:13)
[2016-05-07] MEDS: Methocarbamol 750mg tab ORAL SCH ×3 (08:27→17:12)
[2016-05-07] MEDS: Heparin 5000 units/ml inj SUBQ SCH ×2 (09:00→21:00)
[2016-05-07 11:02] LABS: BASOPHILS % (AUTO) 1.2 % (0.0-2.0); EOSINOPHILS % (AUTO) 2.3 % (0.0-3.0); LYMPHOCYTES % (AUTO) 17.4 % (20.0-45.0); MEAN CORPUSCULAR HEMOGLOBIN 30.6 PG (27.0-31.0); MEAN CORPUSCULAR HGB CONC 33.4 G/DL (32.0-36.0); MEAN CORPUSCULAR VOLUME 92 FL (80-99); MEAN PLATELET VOLUME 8.1 FL (6.5-10.1); MONOCYTES % (AUTO) 11.5 % (1.0-10.0); NEUTROPHILS % (AUTO) 67.6 % (45.0-75.0); PLATELET COUNT 181 K/UL (150-450); RED BLOOD COUNT 4.38 M/UL (4.70-6.10); RED CELL DISTRIBUTION WIDTH 11.7 % (11.6-14.8); WHITE BLOOD COUNT 8.2 K/UL (4.8-10.8)
[2016-05-07 11:23] LABS: BILIRUBIN,DIRECT 0.2 mg/dL (0.1-0.3); TOTAL PROTEIN 7.3 g/dL (6.6-8.7)
[2016-05-07 11:24] LABS: ANION GAP 15 (5-15); CALCIUM 9.1 mg/dL (8.6-10.2); CARBON DIOXIDE 26 mEQ/L (20-30); CHLORIDE 96 mEQ/L (98-107); CREATININE 0.6 mg/dL (0.7-1.2); GLOMERULAR FILTRATION RATE > 60 mL/min (>60); HEMOLYSIS 2; POTASSIUM 3.5 mEQ/L (3.4-4.9); SODIUM 137 mEQ/L (135-145)
[2016-05-07 11:49] VITALS: BP 115/68
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
[2016-05-07] MEDS ORDERED: NS 550ML IV ONE (15:43)
[2016-05-07] MEDS ORDERED: Tubing IV Secondary IV ONE (15:43)
[2016-05-07] MEDS ORDERED: NS 275ml ONE (15:52)
[2016-05-07 15:57] VITALS: BP 116/76
--- NOTE | 2016-05-07 18:55 | Internal Med Progress Note ---
Subjective Date of Service: May 07, 2016 Physician Name Geraldo Tolliver Attending Physician Igor Barcenas MD Current Medications Medications (Trade) Dose Ordered Sig/Jahaira Route PRN Reason Start Time Stop Time Status Last Admin Dose Admin Acetaminophen (Tylenol) 650 mg Q4H PRN ORAL fever 05/04/16 15:30 06/03/16 15:29 05/04/16 15:47 Albuterol/ Ipratropium (DuoNeb 0.5-3(2.5)mg/3ml) 3 ml EVERY 4 HOURS PRN HHN Shortness of Breath 05/04/16 17:00 05/09/16 16:59 Diphenhydramine HCl (Benadryl) 50 mg Q4H PRN IVP Itching 05/05/16 13:45 06/04/16 13:44 05/07/16 17:27 Gabapentin (Neurontin) 400 mg Q8HR ORAL 05/04/16 22:00 06/03/16 21:59 05/07/16 13:21 Gabapentin (Neurontin) 600 mg Q8HR ORAL 05/04/16 22:00 06/03/16 21:59 05/07/16 13:21 Heparin Sodium (Porcine) (Heparin 5000 units/ml) 5,000 units EVERY 12 HOURS SUBQ 05/04/16 21:00 06/03/16 20:59 Methocarbamol (Robaxin) 750 mg TID ORAL 05/04/16 18:00 06/03/16 17:59 05/07/16 17:12 Morphine Sulfate (Morphine Sulfate) 4 mg Q4H PRN IVP Severe Pain (Pain Scale 7-10) 05/05/16 11:00 05/12/16 10:59 05/07/16 17:28 Nitroglycerin (Ntg) 0.4 mg Q5M PRN SL Prn Chest Pain 05/04/16 14:45 06/03/16 14:44 Ondansetron HCl (Zofran) 4 mg Q4HR PRN IVP Nausea & Vomiting 05/05/16 17:00 06/04/16 16:59 05/07/16 17:27 Polyethylene Glycol (Miralax) 17 gm DAILYPRN PRN ORAL Constipation 05/05/16 11:30 06/04/16 11:29 Sodium Chloride (Sodium Chloride 1000ml bag) 1,000 ml @ 50 mls/hr Q20H IV 05/06/16 16:00 06/05/16 15:59 05/07/16 11:47 Temazepam (Restoril) 15 mg HSPRN PRN ORAL Insomnia 05/05/16 11:30 05/12/16 11:29 Trimethoprim/ Sulfamethoxazole 1 ea 1 ea TWICE A DAY ORAL 05/06/16 18:00 05/13/16 17:59 05/07/16 17:13 Allergies: Coded Allergies: IBUPROFEN (Verified Allergy, Mild, Hives, 09/16/12) LEVOFLOXACIN (Verified Allergy, Unknown, 12/15/10) NITROFURANTOIN (Unverified Allergy, Unknown, 05/03/16) Subjective 25 YO M with paraplegia admitted with fever, now UTI. Cover for Int Med-Dr Barcenas. Objective Last Vital Signs Date Time Temp Pulse Resp B/P Pulse Ox O2 Delivery O2 Flow Rate FiO2 05/07/16 15:57 99.3 83 20 116/76 98 Room Air 05/06/16 19:56 21 05/03/16 13:05 3.0 Laboratory Tests Test 05/07/16 10:35 White Blood Count 8.2 K/UL (4.8-10.8) Red Blood Count 4.38 M/UL (4.70-6.10) L Hemoglobin 13.4 G/DL (14.2-18.0) L Hematocrit 40.1 % (42.0-52.0) L Mean Corpuscular Volume 92 FL (80-99) Mean Corpuscular Hemoglobin 30.6 PG (27.0-31.0) Mean Corpuscular Hemoglobin Concent 33.4 G/DL (32.0-36.0) Red Cell Distribution Width 11.7 % (11.6-14.8) Platelet Count 181 K/UL (150-450) Mean Platelet Volume 8.1 FL (6.5-10.1) Neutrophils (%) (Auto) 67.6 % (45.0-75.0) Lymphocytes (%) (Auto) 17.4 % (20.0-45.0) L Monocytes (%) (Auto) 11.5 % (1.0-10.0) H Eosinophils (%) (Auto) 2.3 % (0.0-3.0) Basophils (%) (Auto) 1.2 % (0.0-2.0) Sodium Level 137 mEQ/L (135-145) Potassium Level 3.5 mEQ/L (3.4-4.9) Chloride Level 96 mEQ/L (98-107) L Carbon Dioxide Level 26 mEQ/L (20-30) Anion Gap 15 (5-15) Blood Urea Nitrogen 5 mg/dL (7-23) L Creatinine 0.6 mg/dL (0.7-1.2) L Estimat Glomerular Filtration Rate > 60 mL/min (>60) Glucose Level 105 mg/dL (74-106) Calcium Level 9.1 mg/dL (8.6-10.2) Total Bilirubin 0.5 mg/dL (0.0-1.2) Direct Bilirubin 0.2 mg/dL (0.1-0.3) Aspartate Amino Transf (AST/SGOT) 12 U/L (5-40) Alanine Aminotransferase (ALT/SGPT) 12 U/L (3-41) Alkaline Phosphatase 49 U/L (40-129) Total Protein 7.3 g/dL (6.6-8.7) Albumin 3.3 g/dL (3.5-5.2) L Lipase 74 U/L (< 60) H Intake and Output 05/06/16 05/07/16 19:00 07:00 Intake Total 1515.0 ml 1320 ml Output Total 1400 ml 2300 ml Balance 115.0 ml -980 ml Intake Oral 480 ml 720 ml IV Total 1035.0 ml 600 ml Output Urine Total 1400 ml 2300 ml Objective General Appearance: WD/WN, no apparent distress, alert EENT: PERRL/EOMI, normal ENT inspection Neck: non-tender, normal alignment, supple Cardiovascular: normal peripheral pulses, normal rate, regular rhythm, no gallop/murmur, no JVD Respiratory/Chest: chest wall non-tender, lungs clear, normal breath sounds, no respiratory distress, no accessory muscle use Abdomen: normal bowel sounds, non tender, soft, no organomegaly, no mass Extremities: other - paraplegia 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 D/C vancomycin and cefepime. Start oral bactrim. Urine culture result=mixed gm pos cocci (2) Fever (3) Quadriplegia (4) Nausea & vomiting Assessment & Plan: Cont zofran (5) Abdominal pain (6) Opioid dependence Assessment & Plan: Continue IV Morphine. Status: progressing GERALDO TOLLIVER May 07, 2016 18:55
[2016-05-07 19:00] VITALS: BP 113/70
--- NOTE | 2016-05-07 22:16 | Pulmonology Progress Note ---
Assessment/Plan Problems: (1) Sepsis (2) UTI (lower urinary tract infection) (3) Nausea & vomiting (4) Constipation Assessment/Plan on empiric abx treatment bactrrim started today afebrile, continue antibiotics check cultures tolerating feeding pain management Subjective Allergies: Coded Allergies: IBUPROFEN (Verified Allergy, Mild, Hives, 09/16/12) LEVOFLOXACIN (Verified Allergy, Unknown, 12/15/10) NITROFURANTOIN (Unverified Allergy, Unknown, 05/03/16) Objective Last 24 Hour Vital Signs Date Time Temp Pulse Resp B/P Pulse Ox O2 Delivery O2 Flow Rate FiO2 05/07/16 20:26 91 18 Room Air 05/07/16 19:00 98.1 93 20 113/70 95 Room Air 05/07/16 15:57 99.3 83 20 116/76 98 Room Air 05/07/16 13:52 97.7 05/07/16 13:52 97.7 05/07/16 13:52 97.7 05/07/16 11:49 97.7 102 19 115/68 99 Room Air 05/07/16 08:11 81 16 Room Air 05/07/16 07:54 98.2 89 20 146/86 97 Room Air 05/07/16 04:00 96.8 95 20 132/84 98 Room Air 05/07/16 00:00 98.2 89 22 128/84 97 Room Air Intake and Output 05/06/16 05/07/16 19:00 07:00 Intake Total 1515.0 ml 1320 ml Output Total 1400 ml 2300 ml Balance 115.0 ml -980 ml Intake Oral 480 ml 720 ml IV Total 1035.0 ml 600 ml Output Urine Total 1400 ml 2300 ml Objective Lines, tubes and drains: peripheral, HEENT: normocephalic, atraumatic Neck: non-tender, normal alignment Respiratory/Chest: chest wall non-tender, lungs clear Cardiovascular/Chest: normal peripheral pulses, normal rate Abdomen: normal bowel sounds, non tender Genitourinary/Rectal: normal genital exam, normal rectal exam Extremities: normal range of motion, non-tender Laboratory Tests 05/07/16 10:35: White Blood Count 8.2, Red Blood Count 4.38L, Hemoglobin 13.4L, Hematocrit 40.1L , Mean Corpuscular Volume 92, Mean Corpuscular Hemoglobin 30.6, Mean Corpuscular Hemoglobin Concent 33.4, Red Cell Distribution Width 11.7, Platelet Count 181, Mean Platelet Volume 8.1, Neutrophils (%) (Auto) 67.6, Lymphocytes (% ) (Auto) 17.4L, Monocytes (%) (Auto) 11.5H, Eosinophils (%) (Auto) 2.3, Basophils (%) (Auto) 1.2, Sodium Level 137, Potassium Level 3.5, Chloride Level 96L, Carbon Dioxide Level 26, Anion Gap 15, Blood Urea Nitrogen 5L, Creatinine 0.6L, Estimat Glomerular Filtration Rate > 60, Glucose Level 105, Calcium Level 9.1, Total Bilirubin 0.5, Direct Bilirubin 0.2, Aspartate Amino Transf (AST/SGOT ) 12, Alanine Aminotransferase (ALT/SGPT) 12, Alkaline Phosphatase 49, Total Protein 7.3, Albumin 3.3L, Lipase 74H Current Medications Medications (Trade) Dose Ordered Sig/Jahaira Route PRN Reason Start Time Stop Time Status Last Admin Dose Admin Acetaminophen (Tylenol) 650 mg Q4H PRN ORAL fever 05/04/16 15:30 06/03/16 15:29 05/04/16 15:47 Albuterol/ Ipratropium (DuoNeb 0.5-3(2.5)mg/3ml) 3 ml EVERY 4 HOURS PRN HHN Shortness of Breath 05/04/16 17:00 05/09/16 16:59 Diphenhydramine HCl (Benadryl) 50 mg Q4H PRN IVP Itching 05/05/16 13:45 06/04/16 13:44 05/07/16 17:27 Gabapentin (Neurontin) 400 mg Q8HR ORAL 05/04/16 22:00 06/03/16 21:59 05/07/16 21:01 Gabapentin (Neurontin) 600 mg Q8HR ORAL 05/04/16 22:00 06/03/16 21:59 05/07/16 21:01 Heparin Sodium (Porcine) (Heparin 5000 units/ml) 5,000 units EVERY 12 HOURS SUBQ 05/04/16 21:00 06/03/16 20:59 05/07/16 21:00 Methocarbamol (Robaxin) 750 mg TID ORAL 05/04/16 18:00 06/03/16 17:59 05/07/16 17:12 Morphine Sulfate (Morphine Sulfate) 4 mg Q4H PRN IVP Severe Pain (Pain Scale 7-10) 05/05/16 11:00 05/12/16 10:59 05/07/16 17:28 Nitroglycerin (Ntg) 0.4 mg Q5M PRN SL Prn Chest Pain 05/04/16 14:45 06/03/16 14:44 Ondansetron HCl (Zofran) 4 mg Q4HR PRN IVP Nausea & Vomiting 05/05/16 17:00 06/04/16 16:59 05/07/16 17:27 Polyethylene Glycol (Miralax) 17 gm DAILYPRN PRN ORAL Constipation 05/05/16 11:30 06/04/16 11:29 Sodium Chloride (Sodium Chloride 1000ml bag) 1,000 ml @ 50 mls/hr Q20H IV 05/06/16 16:00 06/05/16 15:59 05/07/16 11:47 Temazepam (Restoril) 15 mg HSPRN PRN ORAL Insomnia 05/05/16 11:30 05/12/16 11:29 05/07/16 21:02 Trimethoprim/ Sulfamethoxazole 1 ea 1 ea TWICE A DAY ORAL 05/06/16 18:00 05/13/16 17:59 05/07/16 17:13 ROSS SAMAYOA May 07, 2016 22:16
[2016-05-08] VITALS (10 sets, daily range): BP systolic 98–141; BP diastolic 39–93
[2016-05-08] MEDS: DiphenhydrAMINE 50mg/ml Inj IVP PRN ×3 (03:11→13:52)
[2016-05-08] MEDS: Morphine Sulfate 2mg/ml Inj IVP PRN ×3 (03:12→13:57)
[2016-05-08 07:04] LABS: BASOPHILS % (AUTO) 1.1 % (0.0-2.0); LYMPHOCYTES % (AUTO) 23.5 % (20.0-45.0); MEAN CORPUSCULAR HEMOGLOBIN 30.2 PG (27.0-31.0); MEAN CORPUSCULAR HGB CONC 32.5 G/DL (32.0-36.0); MEAN CORPUSCULAR VOLUME 93 FL (80-99); MEAN PLATELET VOLUME 8.1 FL (6.5-10.1); MONOCYTES % (AUTO) 11.8 % (1.0-10.0); NEUTROPHILS % (AUTO) 60.7 % (45.0-75.0); PLATELET COUNT 170 K/UL (150-450); RED BLOOD COUNT 4.24 M/UL (4.70-6.10); RED CELL DISTRIBUTION WIDTH 12.1 % (11.6-14.8); WHITE BLOOD COUNT 9.3 K/UL (4.8-10.8)
[2016-05-08 07:12] LABS: ANION GAP 16 (5-15); CALCIUM 8.9 mg/dL (8.6-10.2); CARBON DIOXIDE 28 mEQ/L (20-30); CHLORIDE 94 mEQ/L (98-107); CREATININE 0.6 mg/dL (0.7-1.2); GLOMERULAR FILTRATION RATE > 60 mL/min (>60); HEMOLYSIS 0; POTASSIUM 3.6 mEQ/L (3.4-4.9); SODIUM 138 mEQ/L (135-145)
[2016-05-08] MEDS: Bactrim DS (160mg/800mg) tab ORAL SCH ×2 (08:37→18:26)
[2016-05-08] MEDS: Methocarbamol 750mg tab ORAL SCH ×3 (08:38→18:27)
[2016-05-08] MEDS: Heparin 5000 units/ml inj SUBQ SCH (09:43)
--- NOTE | 2016-05-08 12:39 | Pulmonology Progress Note ---
Assessment/Plan Problems: (1) Sepsis (2) UTI (lower urinary tract infection) (3) Nausea & vomiting (4) Constipation Assessment/Plan on empiric abx treatment bactrrim started today afebrile, continue antibiotics check cultures tolerating feeding pain management Subjective Allergies: Coded Allergies: IBUPROFEN (Verified Allergy, Mild, Hives, 09/16/12) LEVOFLOXACIN (Verified Allergy, Unknown, 12/15/10) NITROFURANTOIN (Unverified Allergy, Unknown, 05/03/16) Objective Last 24 Hour Vital Signs Date Time Temp Pulse Resp B/P Pulse Ox O2 Delivery O2 Flow Rate FiO2 05/08/16 11:50 98.6 98 16 98/68 98 Room Air 05/08/16 08:07 99.3 99 16 106/72 97 Room Air 05/08/16 07:54 90 18 97 Room Air 21 05/08/16 07:53 21 05/08/16 07:52 89 18 97 Room Air 21 05/08/16 07:20 89 18 Room Air 05/08/16 06:52 98.4 05/08/16 04:00 100.6 106 20 123/77 97 Room Air 05/08/16 00:00 98.8 90 22 110/63 95 Room Air 05/07/16 20:26 91 18 Room Air 05/07/16 19:00 98.1 93 20 113/70 95 Room Air 05/07/16 15:57 99.3 83 20 116/76 98 Room Air 05/07/16 13:52 97.7 05/07/16 13:52 97.7 05/07/16 13:52 97.7 Intake and Output 05/07/16 05/08/16 19:00 07:00 Intake Total 540 ml Output Total 600 ml 1550 ml Balance -60 ml -1550 ml Intake Oral 240 ml IV Total 300 ml Output Urine Total 600 ml 1550 ml Objective Lines, tubes and drains: peripheral, HEENT: normocephalic, atraumatic Neck: non-tender, normal alignment Respiratory/Chest: chest wall non-tender, lungs clear Cardiovascular/Chest: normal peripheral pulses, normal rate Abdomen: normal bowel sounds, non tender Genitourinary/Rectal: normal genital exam, normal rectal exam Extremities: normal range of motion, non-tender Laboratory Tests 05/08/16 06:15: White Blood Count 9.3, Red Blood Count 4.24L, Hemoglobin 12.8L, Hematocrit 39.3L , Mean Corpuscular Volume 93, Mean Corpuscular Hemoglobin 30.2, Mean Corpuscular Hemoglobin Concent 32.5, Red Cell Distribution Width 12.1, Platelet Count 170, Mean Platelet Volume 8.1, Neutrophils (%) (Auto) 60.7, Lymphocytes (% ) (Auto) 23.5, Monocytes (%) (Auto) 11.8H, Eosinophils (%) (Auto) 3.0, Basophils (%) (Auto) 1.1, Sodium Level 138, Potassium Level 3.6, Chloride Level 94L, Carbon Dioxide Level 28, Anion Gap 16H, Blood Urea Nitrogen 4L, Creatinine 0.6L, Estimat Glomerular Filtration Rate > 60, Glucose Level 96, Calcium Level 8.9 Current Medications Medications (Trade) Dose Ordered Sig/Jahaira Route PRN Reason Start Time Stop Time Status Last Admin Dose Admin Acetaminophen (Tylenol) 650 mg Q4H PRN ORAL fever 05/04/16 15:30 06/03/16 15:29 05/08/16 05:53 Albuterol/ Ipratropium (DuoNeb 0.5-3(2.5)mg/3ml) 3 ml EVERY 4 HOURS PRN HHN Shortness of Breath 05/04/16 17:00 05/09/16 16:59 05/08/16 07:55 Diphenhydramine HCl (Benadryl) 50 mg Q4H PRN IVP Itching 05/05/16 13:45 06/04/16 13:44 05/08/16 08:39 Gabapentin (Neurontin) 400 mg Q8HR ORAL 05/04/16 22:00 06/03/16 21:59 05/08/16 05:52 Gabapentin (Neurontin) 600 mg Q8HR ORAL 05/04/16 22:00 06/03/16 21:59 05/08/16 05:52 Heparin Sodium (Porcine) (Heparin 5000 units/ml) 5,000 units EVERY 12 HOURS SUBQ 05/04/16 21:00 06/03/16 20:59 05/08/16 09:43 Methocarbamol (Robaxin) 750 mg TID ORAL 05/04/16 18:00 06/03/16 17:59 05/08/16 08:38 Morphine Sulfate (Morphine Sulfate) 4 mg Q4H PRN IVP Severe Pain (Pain Scale 7-10) 05/05/16 11:00 05/12/16 10:59 05/08/16 08:39 Nitroglycerin (Ntg) 0.4 mg Q5M PRN SL Prn Chest Pain 05/04/16 14:45 06/03/16 14:44 Ondansetron HCl (Zofran) 4 mg Q4HR PRN IVP Nausea & Vomiting 05/05/16 17:00 06/04/16 16:59 05/08/16 08:39 Polyethylene Glycol (Miralax) 17 gm DAILYPRN PRN ORAL Constipation 05/05/16 11:30 06/04/16 11:29 Sodium Chloride (Sodium Chloride 1000ml bag) 1,000 ml @ 50 mls/hr Q20H IV 05/06/16 16:00 06/05/16 15:59 05/08/16 08:39 Temazepam (Restoril) 15 mg HSPRN PRN ORAL Insomnia 05/05/16 11:30 05/12/16 11:29 05/07/16 21:02 Trimethoprim/ Sulfamethoxazole 1 ea 1 ea TWICE A DAY ORAL 05/06/16 18:00 05/13/16 17:59 05/08/16 08:37 ROSS SAMAYOA May 08, 2016 12:39
--- NOTE | 2016-05-08 14:01 | Internal Med Progress Note ---
Subjective Date of Service: May 08, 2016 Physician Name Tolliver,Lobo Attending Physician Igor Barcenas MD Current Medications Medications (Trade) Dose Ordered Sig/Jahaira Route PRN Reason Start Time Stop Time Status Last Admin Dose Admin Acetaminophen (Tylenol) 650 mg Q4H PRN ORAL fever 05/04/16 15:30 06/03/16 15:29 05/08/16 05:53 Albuterol/ Ipratropium (DuoNeb 0.5-3(2.5)mg/3ml) 3 ml EVERY 4 HOURS PRN HHN Shortness of Breath 05/04/16 17:00 05/09/16 16:59 05/08/16 07:55 Diphenhydramine HCl (Benadryl) 50 mg Q4H PRN IVP Itching 05/05/16 13:45 06/04/16 13:44 05/08/16 13:52 Gabapentin (Neurontin) 400 mg Q8HR ORAL 05/04/16 22:00 06/03/16 21:59 05/08/16 13:52 Gabapentin (Neurontin) 600 mg Q8HR ORAL 05/04/16 22:00 06/03/16 21:59 05/08/16 13:51 Heparin Sodium (Porcine) (Heparin 5000 units/ml) 5,000 units EVERY 12 HOURS SUBQ 05/04/16 21:00 06/03/16 20:59 05/08/16 09:43 Methocarbamol (Robaxin) 750 mg TID ORAL 05/04/16 18:00 06/03/16 17:59 05/08/16 13:51 Morphine Sulfate (Morphine Sulfate) 4 mg Q4H PRN IVP Severe Pain (Pain Scale 7-10) 05/05/16 11:00 05/12/16 10:59 05/08/16 13:57 Nitroglycerin (Ntg) 0.4 mg Q5M PRN SL Prn Chest Pain 05/04/16 14:45 06/03/16 14:44 Ondansetron HCl (Zofran) 4 mg Q4HR PRN IVP Nausea & Vomiting 05/05/16 17:00 06/04/16 16:59 05/08/16 13:52 Polyethylene Glycol (Miralax) 17 gm DAILYPRN PRN ORAL Constipation 05/05/16 11:30 06/04/16 11:29 Sodium Chloride (Sodium Chloride 1000ml bag) 1,000 ml @ 50 mls/hr Q20H IV 05/06/16 16:00 06/05/16 15:59 05/08/16 08:39 Temazepam (Restoril) 15 mg HSPRN PRN ORAL Insomnia 05/05/16 11:30 05/12/16 11:29 05/07/16 21:02 Trimethoprim/ Sulfamethoxazole 1 ea 1 ea TWICE A DAY ORAL 05/06/16 18:00 05/13/16 17:59 05/08/16 08:37 Allergies: Coded Allergies: IBUPROFEN (Verified Allergy, Mild, Hives, 09/16/12) LEVOFLOXACIN (Verified Allergy, Unknown, 12/15/10) NITROFURANTOIN (Unverified Allergy, Unknown, 05/03/16) ROS Limited/Unobtainable: No Constitutional: Reports: no symptoms HEENT: Reports: no symptoms Cardiovascular: Reports: no symptoms Respiratory: Reports: no symptoms Gastrointestinal/Abdominal: Reports: no symptoms Genitourinary: Reports: no symptoms Neurologic/Psychiatric: Reports: no symptoms Subjective 25 YO M with paraplegia admitted with fever, now UTI. Cover for Int Med-Dr Barecnas. Objective Last Vital Signs Date Time Temp Pulse Resp B/P Pulse Ox O2 Delivery O2 Flow Rate FiO2 05/08/16 11:50 98.6 98 16 98/68 98 Room Air 05/08/16 07:54 21 05/03/16 13:05 3.0 Laboratory Tests Test 05/08/16 06:15 White Blood Count 9.3 K/UL (4.8-10.8) Red Blood Count 4.24 M/UL (4.70-6.10) L Hemoglobin 12.8 G/DL (14.2-18.0) L Hematocrit 39.3 % (42.0-52.0) L Mean Corpuscular Volume 93 FL (80-99) Mean Corpuscular Hemoglobin 30.2 PG (27.0-31.0) Mean Corpuscular Hemoglobin Concent 32.5 G/DL (32.0-36.0) Red Cell Distribution Width 12.1 % (11.6-14.8) Platelet Count 170 K/UL (150-450) Mean Platelet Volume 8.1 FL (6.5-10.1) Neutrophils (%) (Auto) 60.7 % (45.0-75.0) Lymphocytes (%) (Auto) 23.5 % (20.0-45.0) Monocytes (%) (Auto) 11.8 % (1.0-10.0) H Eosinophils (%) (Auto) 3.0 % (0.0-3.0) Basophils (%) (Auto) 1.1 % (0.0-2.0) Sodium Level 138 mEQ/L (135-145) Potassium Level 3.6 mEQ/L (3.4-4.9) Chloride Level 94 mEQ/L (98-107) L Carbon Dioxide Level 28 mEQ/L (20-30) Anion Gap 16 (5-15) H Blood Urea Nitrogen 4 mg/dL (7-23) L Creatinine 0.6 mg/dL (0.7-1.2) L Estimat Glomerular Filtration Rate > 60 mL/min (>60) Glucose Level 96 mg/dL (74-106) Calcium Level 8.9 mg/dL (8.6-10.2) Intake and Output 05/07/16 05/08/16 19:00 07:00 Intake Total 540 ml Output Total 600 ml 1550 ml Balance -60 ml -1550 ml Intake Oral 240 ml IV Total 300 ml Output Urine Total 600 ml 1550 ml Objective General Appearance: WD/WN, no apparent distress, alert EENT: PERRL/EOMI, normal ENT inspection Neck: non-tender, normal alignment, supple Cardiovascular: normal peripheral pulses, normal rate, regular rhythm, no gallop/murmur, no JVD Respiratory/Chest: chest wall non-tender, lungs clear, normal breath sounds, no respiratory distress, no accessory muscle use Abdomen: normal bowel sounds, non tender, soft, no organomegaly, no mass Extremities: other - paraplegia 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 D/C vancomycin and cefepime. Start oral bactrim. Urine culture result=mixed gm pos cocci (2) Fever (3) Quadriplegia (4) Nausea & vomiting Assessment & Plan: Cont zofran (5) Abdominal pain (6) Opioid dependence Assessment & Plan: Continue IV Morphine. Status: progressing LOBO TOLLIVER May 08, 2016 14:01
[2016-05-08] MEDS ORDERED: Nitroglycerin Subl 0.4mg tab (Bottle Of 25) SL PRN (18:45)
[2016-05-08] MEDS ORDERED: Morphine Sulfate 2mg/ml Inj IVP PRN (19:00)
[2016-05-08] MEDS ORDERED: Heparin 5000 units/ml inj SUBQ SCH (21:00)
[2016-05-08] MEDS ORDERED: DuoNeb 0.5-3(2.5)mg/3ml neb HHN PRN (21:00)
[2016-05-08] MEDS ORDERED: Lidocaine 2% 100mg/5ml Carp ONE (21:09)
[2016-05-08] MEDS ORDERED: Calcium Chloride 10% 10ml carpuject IVP ONE (21:09)
[2016-05-08] MEDS ORDERED: Sodium Bicarbonate 8.4% 50ml Carp ONE (21:09)
[2016-05-08] MEDS ORDERED: EPINEPHrine 1mg/10ml carp IV ONE (21:09)
[2016-05-08] MEDS ORDERED: DiphenhydrAMINE 50mg/ml Inj IVP PRN (21:45)
[2016-05-08 21:49] LABS: ALANINE AMINOTRANSFERASE 217 U/L (3-41); ALBUMIN/GLOBULIN RATIO 0.8 (1.0-2.7); ASPARTATE AMINO TRANSFERASE 326 U/L (5-40); CALCIUM 10.5 mg/dL (8.6-10.2); CARBON DIOXIDE 12 mEQ/L (20-30); CHLORIDE 92 mEQ/L (98-107); CREATININE 1.1 mg/dL (0.7-1.2); GLOMERULAR FILTRATION RATE > 60 mL/min (>60); HEMOLYSIS 28; SODIUM 139 mEQ/L (135-145); TOTAL PROTEIN 4.6 g/dL (6.6-8.7)
[2016-05-08 21:55] LABS: ANION GAP 35 (5-15); POTASSIUM 6.3 mEQ/L (3.4-4.9); TROPONIN I 0.88 ng/mL (<=0.30)
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
[2016-05-09] MEDS ORDERED: Bactrim DS (160mg/800mg) tab ORAL SCH (09:00)
[2016-05-09] MEDS ORDERED: Methocarbamol 750mg tab ORAL SCH (09:00)
[2016-05-09] MEDS ORDERED: Miralax 17gm pkt ORAL PRN (11:30)
--- NOTE | 2016-05-10 14:20 | Discharge Summary ---
Discharge Summary Hospital Course Date of Admission May 03, 2016 at 10:30 Date of Discharge May 08, 2016 at 21:10 Admitting Diagnosis FEVER ,SEPSIS HPI Lj Muniz is a 25 year old male who was admitted on May 03, 2016 at 10:30 for Fever,Sepsis Hospital Course summary dictated # [id number] Discharge Condition Upon Discharge: grave Discharge Disposition Patient , pronounced at 2120 Discharge Diagnoses: Discharge Instructions Discharge Instructions Special Instructions I have been assigned to complete a D/C Summary on this account. I was not involved in the patient management Razia Munzo NP (Vanchtein) May 10, 2016 14:20
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
== END 2016-05-08 21:10 | disposition expired | DRG 720 ==
LOC: EDBD 08:50 → EMR 09:35 → 2W 10:30 → EDBEDREQ 12:53 → 4E 05-04 14:51 → ICU 05-08 16:35 → 2W 05-08 18:36 → ICU 05-08 20:42
PROC: 0YHJ33Z Insertion of Infusion Device into Left Lower Leg, Percutaneous Approach (ICD-10-PCS; 2016-05-03)
PROC: 02HV33Z Insertion of Infusion Device into Superior Vena Cava, Percutaneous Approach (ICD-10-PCS; 2016-05-03)
PROC: 0BH17EZ Insertion of Endotracheal Airway into Trachea, Via Natural or Artificial Opening (ICD-10-PCS; principal; 2016-05-08)
PROC: 5A12012 Performance of Cardiac Output, Single, Manual (ICD-10-PCS; 2016-05-08)
DX: A41.9 Sepsis, unspecified organism (principal); J96.00 Acute respiratory failure, unspecified whether with hypoxia or hypercapnia; I47.2 Ventricular tachycardia; G82.20 Paraplegia, unspecified; F11.20 Opioid dependence, uncomplicated; N13.2 Hydronephrosis with renal and ureteral calculous obstruction; N12 Tubulo-interstitial nephritis, not specified as acute or chronic; N31.9 Neuromuscular dysfunction of bladder, unspecified; K59.00 Constipation, unspecified; I46.9 Cardiac arrest, cause unspecified; Z88.6 Allergy status to analgesic agent; Z88.1 Allergy status to other antibiotic agents; Z88.8 Allergy status to other drugs, medicaments and biological substances; R10.9 Unspecified abdominal pain; I10 Essential (primary) hypertension; G89.4 Chronic pain syndrome; F32.9 Major depressive disorder, single episode, unspecified
CPT/HCPCS: 36415; 36569; 71010; 74177; 76937; 80048; 80053; 80076; 80202; 81001; 81003; 82550; 82553; 82962; 83605; 83690; 83735; 84100; 84484; 85025; 87040; 87081; 87086; 92950; 93005; 94640; 94664; J0171; J2405